=== PATIENT | female | born 1970 | race Caucasian/White ===

== ENCOUNTER 2020-06-25 16:05 | Emergency (ER) | payer SELFPAY ==
[2020-04-02 10:48] VITALS: BP 145/84
[~2020-06-25] VITALS: Ht 154.9 cm; Wt 55.0 kg
[~2020-06-25 16:05] MED LIST: CEPH-264 PO; Folic Acid PO; MULT1TAB90 PO; PANT40TA77 PO; THIA100T22 PO
[2020-06-25] MEDS ORDERED: DEXTROSE 50% 25 GM / 50ML DISP.SYRIN. IV ONE ×2 (16:27→18:00)
[2020-06-25] MEDS ORDERED: IV DEXTROSE 5% - 0.9 % NACL 1,000 ML IV ONE (16:30)
[2020-06-25] MEDS ORDERED: IV NORMAL SALINE 1000ML BAG 1,000 ML IV ONE (16:30)
[2020-06-25] MEDS ORDERED: NOREPINEPHRINE VIAL 8 MG in IV DEXTROSE 5% 250 ML IV ONE (16:45)
[2020-06-25] MEDS ORDERED: PANTOPRAZOLE IV PUSH 40 MG VIAL. IVP ONE (17:00)
[2020-06-25] MEDS ORDERED: PIPERACILLIN/TAZOBACTAM 3.375 GM in IV NORMAL SALINE 50ML 50 ML IV ONE (17:00)
[2020-06-25 17:02] LABS: BASO # 0.1 x10^3/uL (0.0-0.2); BASO % 2 % (0-3); EOS % 0 % (0-3); HEMATOCRIT 23.6 % (36.0-47.0); HEMOGLOBIN 7.8 g/dL (12.0-15.5); LYMPH # 1.8 x10^3/uL (1.0-4.8); LYMPH % 24 % (24-48); MEAN CORPUSCULAR HEMOGLOBIN 35 pg (25-35); MEAN CORPUSCULAR HGB CONC 33 g/dL (31-37); MEAN CORPUSCULAR VOLUME 107 fL (79-100); MONO % 0 % (0-9); NEUT # 5.6 x10^3/uL (1.8-7.7); NEUT % 74 % (31-73); PLATELET COUNT 51 x10^3/uL (140-400); RED BLOOD COUNT 2.22 x10^6/uL (3.50-5.40); RED CELL DISTRIBUTION WIDTH 14.1 % (11.5-14.5); WHITE BLOOD COUNT 7.6 x10^3/uL (4.0-11.0)
[2020-06-25 17:10] LABS: PROTHROMBIN TIME PATIENT 29.1 SEC (11.7-14.0)
[2020-06-25 17:13] LABS: CALCIUM 10.7 mg/dL (8.5-10.1); CREATININE 3.1 mg/dL (0.6-1.0); POTASSIUM 5.4 mmol/L (3.5-5.1)
--- NOTE | 2020-06-25 17:13 | PHYS DOC ---
Past Medical History Past Medical History: No Pertinent History (ROSANNA SMART MD) Past Surgical History: No Surgical History (ROSANNA SMART MD) Smoking Status: Current Every Day Smoker Alcohol Use: Heavy (ROSANNA SMART MD) General Adult EDM: Chief Complaint: CPR/FULL ARREST HPI: HPI: Patient is a 49 year old female who presents to the Emergency Room in cardiac arrest. Per report, patient has been ill for "awhile." She has been confused for over a week. She became unresponsive and family called 911. (ROSANNA SMART MD) Review of Systems: Review of Systems: Unable to obtain (ROSANNA SMART MD) Heart Score: Risk Factors: Risk Factors: DM, Current or recent (<one month) smoker, HTN, HLP, family history of CAD, obesity. Risk Scores: Score 0 - 3: 2.5% MACE over next 6 weeks - Discharge Home Score 4 - 6: 20.3% MACE over next 6 weeks - Admit for Clinical Observation Score 7 - 10: 72.7% MACE over next 6 weeks - Early Invasive Strategies (ROSANNA SMART MD) Current Medications: Current Medications Medications (Trade) Dose Ordered Sig/Laura Start Time Stop Time Status Last Admin Dose Admin Dextrose (Dextrose 50%-Water Syringe) 25 gm STK-MED ONCE 06/25/20 16:27 06/25/20 16:27 DC Dextrose/Sodium Chloride 1,000 ml @ 75 mls/hr 1X ONCE 06/25/20 16:30 06/26/20 05:49 Norepinephrine Bitartrate 8 mg/ Dextrose 258 ml @ 0 mls/hr 1X ONCE 06/25/20 16:45 06/25/20 16:46 DC Sodium Chloride 1,000 ml @ 1,000 mls/hr 1X ONCE 06/25/20 16:30 06/25/20 17:29 (ROSANNA SMART MD) Allergies: Allergies: Allergies Coded Allergies Type Severity Reaction Last Updated Verified No Known Drug Allergies 03/31/20 No (ROSANNA SMART MD) Physical Exam: PE: General: unresponsive, toxic appearing, CPR in progress, jaundice HEENT: Normocephalic, atraumatic, no drainage from eyes, pupils fixed, dark blood in airway, scleral icterus Neck: Supple, atraumatic, trachea midline Cardiology: No radial/femoral pulses bilaterally, no heart sounds Pulmonary: Bilateral breath sounds Abdomen: soft, distended, fluid wave Skin: intact, dry, cool Extremities: No deformities, bilateral foot edema Neurology: nonresponsive, nonverbal, no movement, GCS 3 (ROSANNA SMART MD) Current Patient Data: Labs: Laboratory Tests Test 06/25/20 16:25 Glucose (Fingerstick) 35 mg/dL (70-99) *L Vital Signs: Vital Signs Date Time Temp Pulse Resp B/P (MAP) Pulse Ox O2 Delivery O2 Flow Rate FiO2 06/25/20 16:25 Ventilator (ROSANNA SMART MD) EKG: EKG: [] (ROSANNA SMART MD) Radiology/Procedures: Radiology/Procedures: [] (ROSANNA SMART MD) Course & Med Decision Making: Course & Med Decision Making Pertinent Labs and Imaging studies reviewed. (See chart for details) Patient is 49-year-old female presents to the emergency room in cardiac arrest. According to report patient lost pulse in route. Prior to coding she did have a glucose of 25. EMS was unable to get an IV and was unable to give her any medications prior to arrival. Patient was also not being bagged prior to arrival. Upon arrival to the emergency room patient did not have a pulse. Compressions were continued and patient was bagged. She was eventually intubated. There was blood in the airway concerning for a GI bleed. Patient appears to have a liver history given her jaundice, distended abdomen with fluid wave, and general appearance. IV was obtained quickly and patient was given epinephrine and glucose. Patient was also given bicarbonate and calcium. She received 4 doses of epinephrine. She did not have any V. fib or V. tach during her code and was not shocked. She also did receive any amiodarone due to this. ROSC was obtained and patient was started on levophed ggt. Patient's condition is guarded and care was discussed with her 3 sons. She was given Zosyn, fluids, and started on a D5 infusion. After long discussions with her family, her sons have decided on comfort care measures only. At this time, I believe this is appropriate and patient will be given morphine and ativan to help with pain and air hunger. She will be extubated here in the Emergency Room. (ROSANNA SMART MD) Course & Med Decision Making I received signout from Dr. Smart regarding this patient at change. Patient is an unfortunate 49-year-old female with end-stage liver disease that underwent a cardiac arrest. Upon my arrival we are awaiting family to arrive for extubation and comfort care only. I discussed the case with her sons and parents this was made to make the patient comfort only. Prior to the endotracheal tube being removed the patient time of 19:01. On my assessment patient was not breathing and had no pulse and was pronounced (ADDIE MCKEON MD) Dragon Disclaimer: Dragon Disclaimer: This electronic medical record was generated, in whole or in part, using a voice recognition dictation system. (ROSANNA SMART MD) Departure Departure Impression: Primary Impression: Cardiac arrest Additional Impressions: Cirrhosis GI bleed Disposition: 20 Condition: GUARDED Referrals: NO PCP (PCP) Justicifation of Admission Dx: Justifications for Admission: Justification of Admission Dx: Yes Chronic Renal Failure: Electrolyte Abnormality Acute COPD Exacerbation: Acute COPD Exacerbation (ROSANNA SMART MD) Critical Care Time Critical Care: Authorized and Performed by: Rosanna Smart MD Total critical care time: approximately 45 minutes Due to a high probability of clinically significant, life threatening deterioration, the patient required my highest level of preparedness to intervene emergently and I personally spent this critical care time directly and personally managing the patient. This critical care time included obtaining a history; examining the patient; pulse oximetry; ventilator management if necessary; ordering and review of studies; arranging urgent treatment with development of a management plan; evaluation of patient's response to treatment; frequent reassessment; discussion with patient/family; and, discussions with other providers. This critical care time was performed to assess and manage the high probability of imminent, life-threatening deterioration that could result in multi-organ failure. It was exclusive of separately billable procedures and treating other patients and teaching time. Please see MDM section and the rest of the note for further information on patient assessment and treatment. (ROSANNA SMART MD) PROCEDURE Procedure Intubation Performed by: Rosanna Smart MD Consent: Verbal consent not obtained. The procedure was performed in an emergent situation. Required items: required blood products, implants, devices, and special equipment available Patient identity confirmed: arm band Time out: Immediately prior to procedure a "time out" was called to verify the correct patient, procedure, equipment, account support associate and site/side marked as required. Indications: respiratory failure and airway protection Intubation method: direct Patient status: paralyzed (RSI) Preoxygenation: BVM Sedatives: etomidate Paralytic: succinylcoline Laryngoscope size: Mac 4 Tube size: 7.5 mm Tube type: cuffed Number of attempts: 1 Cords visualized: yes Post-procedure assessment: chest rise, BS = bilaterally none over epigastrum, +CO2 detector Breath sounds: equal and absent over the epigastrium Cuff inflated: yes Tube secured with: adhesive tape Chest x-ray interpreted by me. Chest x-ray findings: endotracheal tube in appropriate position Patient tolerance: Patient tolerated the procedure well with no immediate complications. (ROSANNA SMART MD) ROSANNA SMART MD Jun 25, 2020 17:13 ADDIE MCKEON MD Jun 25, 2020 19:36
[2020-06-25 17:18] LABS: ALBUMIN 1.3 g/dL (3.4-5.0); ALBUMIN/GLOBULIN RATIO 0.5 (1.0-1.7); TOTAL BILIRUBIN 4.1 mg/dL (0.2-1.0); TOTAL PROTEIN 3.9 g/dL (6.4-8.2)
[2020-06-25] MEDS ORDERED: MORPHINE SULFATE 10 MG/ML VIAL. IV ONE (17:30)
[2020-06-25] MEDS ORDERED: SODIUM BICARB ADULT 8.4% 50 MEQ/50 ML DISP.SYRIN. ONE (18:00)
[2020-06-25] MEDS ORDERED: CALCIUM CHLORIDE 1,000 MG/10 ML DISP.SYRIN ONE (18:00)
[2020-06-25] MEDS ORDERED: ATROPINE 0.5 MG/5 ML DISP.SYRINGE. ONE (18:00)
[2020-06-25] MEDS ORDERED: EPINEPHrine SYRINGE 1 MG/10 ML SYRINGE ONE (18:00)
== END 2020-06-25 20:38 | disposition expired ==
LOC: ER 16:05
DX: I46.9 Cardiac arrest, cause unspecified (principal); K74.60 Unspecified cirrhosis of liver; K92.2 Gastrointestinal hemorrhage, unspecified; R41.0 Disorientation, unspecified; F17.200 Nicotine dependence, unspecified, uncomplicated; F10.20 Alcohol dependence, uncomplicated; Y90.9 Presence of alcohol in blood, level not specified
CPT/HCPCS: 31500; 36415; 51702; 80053; 82140; 82962; 85025; 85610; 92950; 96361; 96374; 96375; 99291; J2060; J2270; 94002; J0171; J0461; J3490